=== PATIENT | female | born 1970 | race American Indian/Alaskan Native ===

== ENCOUNTER 2020-01-25 18:15 | Emergency (ER) | payer OTHER ==
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
[2020-01-25 22:25] VITALS: BP 150/90
== END 2020-01-25 22:15 | disposition home or self-care (01) ==
LOC: ED 18:15
DX: M79.18 Myalgia, other site (principal); Z79.899 Other long term (current) drug therapy; Z98.890 Other specified postprocedural states; V49.49XA Driver injured in collision with other motor vehicles in traffic accident, initial encounter; Y92.410 Unspecified street and highway as the place of occurrence of the external cause; Y93.89 Activity, other specified; Y99.8 Other external cause status
CPT/HCPCS: 71046; 72040